=== PATIENT | female | born 1995 | race Caucasian/White ===

== ENCOUNTER 2017-02-13 14:37 | Emergency (ER) | payer OTHER ==
[~2017-02-13] VITALS: Ht 157.5 cm; Wt 80.5 kg
[2017-02-13 15:01] VITALS: Ht 157.5 cm; Wt 80.5 kg
--- NOTE | 2017-02-13 16:15 | RADRPT ---
PROCEDURE: Left hand series CLINICAL INDICATION: Crush injury and pain TECHNIQUE: AP, oblique and lateral views of the left an were obtained. COMPARISON: No prior studies are available for comparison. FINDINGS: There is no evidence of acute fractures or dislocations. The bony mineralization is normal. There are no focal bony blastic or lytic lesions. There is no evidence of radiodense foreign bodies. IMPRESSION: No evidence acute fractures dislocations or foreign bodies. RPTAT:AAJJ Physician Carla Date Time Electronically viewed and signed by Parris Severino Physician on 02/13/2017 16:15 BM/
[2017-02-13] MEDS ORDERED: TYL650R PR (16:47)
--- NOTE | 2017-02-13 17:13 | ERD ---
ER Documentation Chief Complaint Date/Time DATE: 02/13/17 TIME: 17:06 Chief Complaint left hand pain s/p crushing injury with sofa HPI 21-year-old female suffered a crush injury to her left hand was accidentally smashed with a sofa. Her primary pain is the distal end of her middle finger. She does have pain in the entire hand but the distal middle fingertip is slightly numb to her. She suffered no other injuries and is otherwise healthy. She is currently in the first term of her . ROS All systems reviewed and are negative except as per history of present illness. Medications Home Meds Active Scripts Acetaminophen* (Acephen*) 650 Mg Supp, 650 MG HI Q6, #20 SUPP Prov:COY JAMES DO 02/13/17 Reported Medications [None] No Conflict Check 02/17/11 Allergies Allergies: Coded Allergies: No Known Drug Allergies (Verified Allergy, Mild, 02/17/11) PMhx/Soc History of Surgery: No Anesthesia Reaction: No Hx Neurological Disorder: No Hx Cardiac Disorders: No Hx Psychiatric Problems: No Hx Miscellaneous Medical Probl: No Hx Alcohol Use: No Hx Substance Use: No Hx Tobacco Use: No Smoking Status: Never smoker Physical Exam Vitals Vital Signs Date Time Temp Pulse Resp B/P Pulse Ox O2 Delivery O2 Flow Rate FiO2 02/13/17 15:01 98.6 96 18 120/61 95 Physical Exam Const: [] No distress Head: Atraumatic Ext: Left hand tenderness to palpation along both aspects of palm as well as fingers. This is a mild tenderness. She does have moderate tenderness to the distal aspect of her middle finger of the distal filings as well as the middle phalanx. Capillary refill is less than 1 second all digits. She is able to feel some sensation on the distal middle finger pad. She has no snuffbox tenderness and no wrist tenderness or limited range of motion. Motor is intact flexion and extension all digits. Neur: Awake and alert and oriented 3, no focal deficits Psych: Normal Mood and Affect Procedures/MDM Crush injury left hand with negative x-ray. Patient was given Sondheimer tab. This did help with her hand pain. Her greatest pain is in the distal phalanx of the middle finger. This area was splinted for protection and comfort. Discharging the patient with Tylenol and primary care follow-up as well as all of few hand clinic follow-up if she continues to have pain as she did suffer a crush injury and some fractures show up on initial x-ray. Left hand x-ray interpretation by myself: See no acute fracture dislocation. No foreign bodies ED splint application no: The chest will metal splint applied to the left middle finger. Performed a neurovascular assessment of the application of this splint the patient was neurovascularly intact in position of comfort. Tolerated procedure well no complications Departure Diagnosis: Primary Impression: Contusion of hand, left Additional Impression: Crush injury of hand Condition: Stable Patient Instructions: Contusion, Hand Referrals: [facility] Additional Instructions: Call your primary care doctor TOMORROW for an appointment during the next 2-3 days. See a hand doctor this week if pain continues. See the doctor sooner or return here if your condition worsens before your appointment time. COY JAMES DO Feb 13, 2017 17:13
== END 2017-02-13 17:12 | disposition home or self-care (01) ==
LOC: FTE 14:37
DX: S60.222A Contusion of left hand, initial encounter (principal); W23.1XXA Caught, crushed, jammed, or pinched between stationary objects, initial encounter; Y92.9 Unspecified place or not applicable